=== PATIENT | female | born 1960 | race Caucasian/White ===

== ENCOUNTER 2023-01-06 07:55 | Day surgery (SDC) | payer MEDICARE ==
[2023-01-06] MEDS ORDERED: IOHEXOL 180 MG/ML 20 ML VIAL ONE (08:03)
[2023-01-06 09:12] LABS: INR 0.96 (0.85-1.15); PROTHROMBIN TIME 11.2 SEC (9.6-11.6)
[2023-01-06 09:13] LABS: PARTIAL THROMBOPLASTIN TIME 29.3 SEC (26.3-35.5)
[2023-01-06 11:30] VITALS: BP 132/42; PULSE 72; RESP 16
== END 2023-01-06 11:45 | disposition home or self-care (01) ==
LOC: DAH 07:55 → RAH 07:55 → EDSTATUS 08:00 → DAH 11:45
PROVIDERS: ATTEND Neuromusculoskeletal Medicine & OMM
DX: M48.062 Spinal stenosis, lumbar region with neurogenic claudication (principal); M51.36 Other intervertebral disc degeneration, lumbar region; M47.814 Spondylosis without myelopathy or radiculopathy, thoracic region; Z79.01 Long term (current) use of anticoagulants; Z79.899 Other long term (current) drug therapy
CPT/HCPCS: 62303; 72129; 85610; 85730; 82948; 36415; 72132; Q9965; 62304